=== PATIENT | male | born 1970 | race African-American/Black ===

== ENCOUNTER 2020-03-20 06:16 | Day surgery (SDC) | payer OTHER ==
[2020-03-17 14:59] VITALS: BMI 40.8
[2020-03-20] MEDS ORDERED: BUPIVACAINE HCL/PF 0.25% (2.5MG/ML) 10 ML VIAL ONE (07:10)
[2020-03-20] MEDS ORDERED: EPINEPHrine 1:1,000 1 MG/1 ML - 30ML VIAL (INJECTION) ONE (07:22)
[2020-03-20] MEDS ORDERED: PROPOFOL 20 ML ONE ×2 (07:48→07:49)
[2020-03-20] MEDS ORDERED: SUCCINYLCHOLINE CHLORIDE 200 MG/10 ML SYRINGE ONE (07:48)
[2020-03-20] MEDS ORDERED: MIDAZOLAM HCL 2 MG/2 ML SINGLE DOSE VIAL ONE (07:49)
--- NOTE | 2020-03-20 08:06 | OP ---
Operative Note - Note: Operative Date: 03/20/20 Pre-Operative Diagnosis: right knee medial meniscus tear Operation: Right knee arthroscopy with partial medial meniscectomy Post-Operative Diagnosis: Same as Pre-op Surgeon: Narendra Borrero [employer] Night Auditor: Natasha Disla Anesthesia: General Operative Report Dictated: Yes
[2020-03-20] MEDS ORDERED: ceFAZolin SODIUM 1 GM VIAL ONE (08:34)
[2020-03-20] MEDS ORDERED: LIDOCAINE HCL/PF 2% SDV 5ML VIAL ONE (08:34)
[2020-03-20] MEDS ORDERED: ONDANSETRON 4 MG/2 ML VIAL ONE (08:34)
[2020-03-20] MEDS ORDERED: BUPIVACAINE HCL/PF 0.25% (2.5MG/ML) 10 ML VIAL IJ ONE (08:44)
[2020-03-20] MEDS ORDERED: PROMETHAZINE HCL 25 MG/1 ML VIAL IVPUSH PRN (09:25)
[2020-03-20] MEDS ORDERED: oxyCODONE HCL 5 MG TABLET PO PRN (09:25)
[2020-03-20] MEDS ORDERED: ONDANSETRON 4 MG/2 ML VIAL IVPUSH PRN (09:25)
[2020-03-20] MEDS ORDERED: LACTATED RINGERS SOLUTION 1,000 ML IV SCH (09:30)
--- NOTE | 2020-03-20 09:56 | OP ---
DATE OF OPERATION: 03/20/2020 PREOPERATIVE DIAGNOSIS: Right knee medial meniscal tear. POSTOPERATIVE DIAGNOSIS: Right knee medial meniscal tear. PROCEDURE: Right knee arthroscopy with partial medial meniscectomy. SURGEON: Narendra Retana MD INTERMEDIATE CARD TENDER: Natasha Disla, physician wellness assistant, whose skillful assistance was necessary for the safe and timely performance of this procedure. Ms. Disla was able to provide limb positioning, traction, assist in driving the camera as well as tissue resection. ANESTHESIA: General. POSTOPERATIVE CONDITION: Stable. COMPLICATIONS: None. INDICATIONS: This is a pleasant gentleman suffering from right knee pain. MRI demonstrated medial meniscal tear. Treatment options including nonoperative versus operative management were reviewed. Operative risks were reviewed in detail including bleeding, infection, neurovascular injury, need for further surgery, postoperative pain and stiffness, progression of osteoarthritis. We discussed medical risks such as heart attack, stroke, DVT, PE and . I addressed the use of perioperative antibiotic and DVT prophylaxis. I addressed all the patient's questions and concerns. He voiced understanding and elected to proceed. PROCEDURE: The patient was brought to the operating room where general anesthetic was administered. The right lower extremity was then prepped and draped in the usual sterile fashion. A preoperative dose of antibiotics was given and the usual timeout procedure was performed. Portals were then marked out on the skin. They were injected subcutaneously with 0.25% Marcaine. The lateral portal was established using an 11 blade. The arthroscope was passed into the knee joint. Examination of the suprapatellar pouch demonstrated proliferative synovitis. Examination of the patellofemoral joint demonstrated high grade partial-thickness chondral wear and area of full-thickness chondral wear along the patellar surface. There was high grade partial chondral wear along the trochlear surface. Passing the arthroscope into the notch demonstrated intact ACL and PCL. The arthroscope was passed into the medial compartment. A medial portal was established under spinal needle localization. Examination of the medial compartment demonstrated high grade partial chondral loss along the medial femoral condyle. There was moderate partial-thickness chondral loss along the tibial plateau. The meniscus was examined demonstrating a complex tear of the posterior horn extending into the body. Utilizing a combination of meniscal biter and shaver this was debrided down to a stable base. The arthroscope was now passed into the lateral compartment. Here, partial-thickness chondral loss and fissuring were noted along the medial tibial plateau. Mild partial chondral loss was noted along the femoral side. Meniscus was probed and found to be stable. The arthroscope was now passed back into the suprapatellar pouch. Here, a synovectomy was performed using the RF device. At this point the excess fluid was withdrawn from the joint. The portals were sutured using 3-0 nylon. Sterile dressings were placed. The patient was extubated and transferred to recovery room in stable condition. NARENDRA RETANA M.D. [id number]
[2020-03-20] MEDS ORDERED: oxyCODONE HCL 5 MG TABLET ONE (10:36)
[2020-03-20 10:48] VITALS: TEMP 97.8
[2020-03-20 11:48] VITALS: BP 151/84; PULSE 84
== END 2020-03-20 11:48 | disposition home or self-care (01) ==
LOC: FASU 06:16
PROVIDERS: ATTEND Orthopaedic Surgery Sports Medicine
PROC: 0SBC4ZZ Excision of Right Knee Joint, Percutaneous Endoscopic Approach (ICD-10-PCS; principal; 2020-03-20 08:44)
DX: S83.241A Other tear of medial meniscus, current injury, right knee, initial encounter (principal); X58.XXXA Exposure to other specified factors, initial encounter; Y93.9 Activity, unspecified; Y92.9 Unspecified place or not applicable
CPT/HCPCS: 82962; 94760